=== PATIENT | male | born 1980 ===

== ENCOUNTER 2017-01-19 19:17 | Observation (INO) | payer BC ==
[2017-01-19 20:20] LABS: BASO # 0.1 K/uL (0.0-0.2); EOS # 0.1 K/uL (0.0-0.7); EOS % 1.9 % (0.0-4.0); HEMATOCRIT 41.7 % (35.0-51.0); LYMPH # 2.4 K/uL (1.0-4.3); LYMPH % 36.7 % (20.0-40.0); MEAN CELL VOLUME 89.9 fl (80.0-94.0); MEAN CORPUSCULAR HEMOGLOBIN 31.2 pg (27.0-31.0); MEAN CORPUSCULAR HGB CONC 34.7 g/dL (33.0-37.0); MEAN PLATELET VOLUME 8.2 fl (7.2-11.7); MONO # 0.5 K/uL (0.0-0.8); MONO % 7.3 % (0.0-10.0); NEUT # 3.5 K/uL (1.8-7.0); NEUT % 53.1 % (50.0-75.0); RED CELL DISTRIBUTION WIDTH 13.1 % (11.5-14.5); WHITE BLOOD COUNT 6.6 K/uL (4.8-10.8)
--- NOTE | 2017-01-19 20:39 | ED PDOC ---
HPI: Chest Pain Time Seen by Provider: 01/19/17 19:38 Chief Complaint (Nursing): Chest Pain Chief Complaint (Provider): chest pain History Per: Patient History/Exam Limitations: no limitations Onset/Duration Of Symptoms: Days (x2 weeks) Current Symptoms Are (Timing): Still Present Additional Complaint(s): Regulo Velazquez is a 36 year old male with previous medical history of dyslipidemia, who presents to the emergency department with a complaint of intermittent chest pain described as "pressure and stabbing" ongoing for 2 weeks. Denied nausea, vomiting or sweats. He was seen by PMD earlier today who found him to be bradycardic on EKG, thus, referred patient to ED for evaluation. Patient reported that he is relatively active, playing basketball at least twice a week. PMD: Ayan Leggett MD Past Medical History Reviewed: Historical Data, Nursing Documentation, Vital Signs Vital Signs: Last Vital Signs Temp 97.8 F 01/19/17 19:26 Pulse 45 L 01/19/17 19:26 Resp 16 01/19/17 19:26 BP 122/79 01/19/17 19:26 Pulse Ox 100 01/19/17 20:47 - Medical History Other PMH: dyslipidemia - Family History Family History: States: [place], CAD, Hypertension - Allergies Allergies/Adverse Reactions: Allergies Allergy/AdvReac Type Severity Reaction Status Date / Time No Known Allergies Allergy Verified 01/19/17 19:28 Review of Systems ROS Statement: Except As Marked, All Systems Reviewed And Found Negative Constitutional: Negative for: Sweats Cardiovascular: Positive for: Chest Pain ("pressure/stabbing") Gastrointestinal: Negative for: Nausea, Vomiting Physical Exam - Reviewed Nursing Documentation Reviewed: Yes Vital Signs Reviewed: Yes - Physical Exam Appears: Positive for: Well, Non-toxic, No Acute Distress Head Exam: Positive for: ATRAUMATIC, NORMAL INSPECTION, NORMOCEPHALIC Skin: Positive for: Normal Color, Warm, Dry. Negative for: Rash Eye Exam: Positive for: Normal appearance, EOMI, PERRL. Negative for: Nystagmus ENT: Positive for: Normal ENT Inspection Neck: Positive for: Normal, Painless ROM, Supple. Negative for: Decreased ROM Cardiovascular/Chest: Positive for: Chest Non Tender, Bradycardia. Negative for : Regular Rate, Rhythm, Tachycardia Respiratory: Positive for: Normal Breath Sounds, Accessory Muscle Use. Negative for: Decreased Breath Sounds, Crackles, Rales, Rhonchi, Wheezing, Respiratory Distress Gastrointestinal/Abdominal: Positive for: Normal Exam, Bowel Sounds, Soft. Negative for: Tenderness Back: Positive for: Normal Inspection. Negative for: L CVA Tenderness, R CVA Tenderness Extremity: Positive for: Normal ROM. Negative for: Tenderness, Pedal Edema, Calf Tenderness, Deformity Neurologic/Psych: Positive for: Alert, Oriented - Laboratory Results Result Diagrams: 01/19/17 20:05 01/19/17 20:27 - ECG O2 Sat by Pulse Oximetry: 100 (RA) Pulse Ox Interpretation: Normal Medical Decision Making Medical Decision Making: Initial Impression: Chest pain onset of bradycardia Initial Plan: * EKG * CMP * Drug screen, urine * Troponin I * Urine dipstick * CBC * PTT * PT * CXR * Aspirin 324mg PO Time: 2100 --Labs: negative for significant abnormality. --CXR: negative for active disease. --Discussed case to with Dr. Leggett. Clinical Impression: Chest pain Scribe Attestation: Documented by Delfina Chand, acting as a scribe for Franco Marquez MD. Provider Scribe Attestation: All medical record entries made by the Scribe were at my direction and personally dictated by me. I have reviewed the chart and agree that the record accurately reflects my personal performance of the history, physical exam, medical decision making, and the department course for this patient. I have also personally directed, reviewed, and agree with the discharge instructions and disposition. Disposition - Clinical Impression Clinical Impression: Chest pain Discussed With DrDominick: Ayan Leggett Doctor Will See Patient In The: Office Counseled Patient/Family Regarding: Studies Performed, Diagnosis, Need For Followup - Disposition Disposition: Routine/Home Disposition Time: 21:00 Condition: FAIR
[2017-01-19 20:46] LABS: PARTIAL THROMBOPLASTIN TIME 29.1 Seconds (25.6-37.1)
[2017-01-19 20:47] LABS: ALB/GLOB RATIO 1.5 (1.0-2.1); ALKALINE PHOSPHATASE 49 U/L (38-126); ALT/SGPT 34 U/L (21-72); AST/SGOT 28 U/L (17-59); BILIRUBIN,TOTAL 0.4 mg/dl (0.2-1.3); BLOOD UREA NITROGEN 13 mg/dl (9-20); CALCIUM 9.4 mg/dL (8.4-10.2); CARBON DIOXIDE 28 mmol/L (22-30); CHLORIDE 103 mmol/L (98-107); GFR AFRICAN-AMERICAN > 60; GLUCOSE,RANDOM 87 mg/dL (75-110); POTASSIUM 3.8 MMOL/L (3.6-5.0); SODIUM 142 mmol/l (132-148); TOTAL PROTEIN 7.6 G/DL (6.3-8.2)
--- NOTE | 2017-01-20 07:43 | RAD ---
HISTORY: Admission. Chest pain COMPARISON: No prior. TECHNIQUE: Chest PA and lateral FINDINGS: LUNGS: No active pulmonary disease. PLEURA: No significant pleural effusion identified. No pneumothorax apparent. CARDIOVASCULAR: Normal. OSSEOUS STRUCTURES: No significant abnormalities. VISUALIZED UPPER ABDOMEN: Normal. OTHER FINDINGS: None. IMPRESSION: No active disease. Please note: No preliminary interpretation of this examination rendered by emergency department personnel (Physician and/or PA declined to provide preliminary report of their findings/ observations).
--- NOTE | 2017-01-20 08:48 | CARD ---
APPROVED REPORT Protocol: MOIRA Test Type: Treadmill Stress Test Attending Physician: Dr. Aldridge Referring Physician: Dr. Leggett Technologist: Bianca Betancourt Test Indications: Bradycardia, chest pain Medications: ASA, Simvastatin Medical History: Cholesterol Target HR: 183 bpm Resting ECG: normal Resting Heart Rate: 50 bpm Resting Blood Pressure: 118/74mmHg submaximum (85%): 156 bpm TEST SUMMARY [id number]. [id number]. PRETESTHYPERV.[id number]. PRETESTWARM-[id number]/74.2. EXERCISESTAGE 103:[id number]/70.1. EXERCISESTAGE 203:[id number]/70.2. EXERCISESTAGE 303:[id number]/74.1. EXERCISESTAGE 401:[id number]/74.8. [id number]:[id number]/70.0. POST EXERCISE Reason for Termination: Fatigue Target HR: NoMax HR: 150 bpm83% of Maximum Predicted HR: 183 bpm Exercise duration: 4 Stage10:01 min:secExercise capacity: 11.7METs Max Blood Pressure: 170/74mmHg Blood Pressure response to exercise: normal resting BP - appropriate response Heart Rate response to exercise: appropriate Chest Pain: NononeAngina index: 0 Arrhythmia: Nonone ST Change: NononeDeviation: 0 mm INTERPRETATION Stress EKG Conclusion: This 36-year-old man was hospitalized for a complaint of palpitations mostly at rest underwent this study to rule out evidence of effort induced myocardial ischemia. His resting electric cardiogram showed sinus rhythm at 40 bpm but otherwise normal pattern. His resting blood pressure is 118/74 mmHg. Cardiac auscultation was unremarkable. On Moira protocol he was able to finish 1 minute of stage IV effort which corresponded to 11.7 METs. There was neither chest pain or ischemic electro-Cardiologic abnormality. The patient did not report any chest pain. The peak heart rate achieved was 150 bpm which corresponded to 85% of his predicted max. The blood pressure response was appropriate reaching 170/74 mmHg. Upon termination of exercise, his heart rate and blood pressure recovery were normal. The patient left the stress lab symptom free and hemodynamically stable. IMPRESSION: The patient had an excellent effort tolerance. His blood pressure response to exercise was appropriate. At 85% of his predicted maximum heart rate, no evidence of myocardial ischemia was detected.
[2017-01-20 11:01] LABS: THYROID STIMULATING HORMONE 3.2 mIU/ML (0.46-4.68)
[2017-01-20 12:06] VITALS: BP 115/65; PULSE 50; RESP 20; TEMP 98.5; O2SAT 98
--- NOTE | 2017-01-20 12:52 | CP.PCM.CON ---
History of Present Illness - History of Present Illness History of Present Illness: I was asked to see patient by Dr Leggett. Patient is a 36 year old male with PMH hypercholesterolemia, who presents with chest pain. He descirbes intermittent substernal chest pressure and burning. He presented to his primary medical doctor and was found to have a an abnormal EKG. He is s/p stress test which I have reviewed. Review of Systems - Constitutional Constitutional: absent: As Per HPI, Anorexia, Chills, Daytime Sleepiness, Excessive Sweating, Fatigue, Fever, Frequent Falls, Headache, Increased Appetite , Lethargy, Malaise, Night Sweats, Snoring, Sleep Apnea, Weight Gain, Weight Loss, Weakness, Other - EENT Eyes: absent: As Per HPI, Blind Spots, Blurred Vision, Change in Vision, Decreased Night Vision, Diplopia, Discharge, Dry Eye, Exophthalmos, Floaters, Irritation, Itchy Eyes, Loss of Peripheral Vision, Pain, Photophobia, Requires Corrective Lenses, Sees Flashes, Spots in Vision, Tunnel Vision, Other Visual Disturbances, Loss of Vision, Other Ears: absent: As Per HPI, Decreased Hearing, Ear Discharge, Ear Pain, Tinnitus, Abnormal Hearing, Disequilibrium, Dizziness, Other Nose/Mouth/Throat: absent: As Per HPI, Epistaxis, Nasal Congestion, Nasal Discharge, Nasal Obstruction, Nasal Trauma, Nose Pain, Post Nasal Drip, Sinus Pain, Sinus Pressure, Bleeding Gums, Change in Voice, Dental Pain, Dry Mouth, Dysphagia, Halitosis, Hoarsness, Lip Swelling, Mouth Lesions, Mouth Pain, Odynophagia, Sore Throat, Throat Swelling, Tongue Swelling, Facial Pain, Neck Pain, Neck Mass, Other - Cardiovascular Cardiovascular: Chest Pain, Dyspnea - Respiratory Respiratory: absent: As Per HPI, Cough, Dyspnea, Hemoptysis, Dyspnea on Exertion , Wheezing, Snoring, Stridor, Pain on Inspiration, Chest Congestion, Excessive Mucous Production, Change in Mucous Color, Pain with Coughing, Other - Gastrointestinal Gastrointestinal: absent: As Per HPI, Abdominal Pain, Belching, Bloating, Change in Bowel Habits, Change in Stool Character, Coffee Ground Emesis, Constipation, Cramping, Diarrhea, Dyspepsia, Dysphagia, Early Satiety, Excessive Flatus, Fecal Incontinence, Heartburn, Hematemesis, Hematochezia, Loose Stools, Melena, Nausea, Odynophagia, Temesmus, Vomiting, Other - Musculoskeletal Musculoskeletal: absent: As Per HPI, Abnormal Gait, Arthralgias, Atrophy, Back Pain, Deformity, Joint Swelling, Limited Range of Motion, Loss of Height, Muscle Cramps, Muscle Weakness, Myalgias, Neck Pain, Numbness, Radiating Pain into Limb, Stiffness, Tingling, Other - Integumentary Integumentary: absent: As Per HPI, Acne, Alopecia, Bleeding Lesions, Change in Hair, Change in Nails, Change in Pigmentation, Changing Lesions, Dry Skin, Erythema, Furuncle, Hirsutism, Lesions, New Lesions, Non-Healing Lesions, Photosensitivity, Pruritus, Rash, Skin Pain, Skin Ulcer, Sores, Striae, Swelling , Unusual Bruising, Wounds, Jaundice, Other - Neurological Neurological: absent: As Per HPI, Abnormal Gait, Abnormal Hearing, Abnormal Movements, Abnormal Speech, Behavioral Changes, Burning Sensations, Confusion, Convulsions, Disequilibrium, Dizziness, Numbness, Focal Weakness, Frequent Falls , Headaches, Lack of Coordination, Loss of Vision, Memory Loss, Paresthesias, Radicular Pain, Restless Legs, Sensory Deficit, Syncope, Tingling, Tremor, Vertigo, Weakness, Other Visual Disturbances, Other - Psychiatric Psychiatric: absent: As Per HPI, Abnormal Sleep Pattern, Anhedonia, Anxiety, Auditory Hallucinations, Behavioral Changes, Change in Appetite, Change in Libido, Confusion, Depression, Difficulty Concentrating, Hallucinations, Homicidal Ideation, Hopelessness, Irritability, Memory Loss, Mood Swings, Panic Attacks, Paranoia, Suicidal Ideation, Visual Hallucinations, Tactile Hallucinations, Other - Endocrine Endocrine: absent: As Per HPI, Change in Body Appearance, Change in Libido, Cold Intolorance, Deepening of Voice, Excessive Sweating, Fatigue, Flushing, Heat Intolorance, Increase in Ring/Shoe/Hat Size, Palpitations, Polydipsia, Polyphagia, Polyuria, Other - Hematologic/Lymphatic Hematologic: absent: As Per HPI, Easy Bleeding, Easy Bruising, Lymphadenopathy, Other Past Patient History - Past Medical History & Family History Past Medical History?: Yes - Past Social History Smoking Status: Never Smoked - CARDIAC Hx Cardiac Disorders: Yes Hx Hypercholesterolemia: Yes - PULMONARY Hx Respiratory Disorders: No - NEUROLOGICAL Hx Neurological Disorder: No - HEENT Hx HEENT Problems: No - RENAL Hx Chronic Kidney Disease: No - ENDOCRINE/METABOLIC Hx Endocrine Disorders: No - HEMATOLOGICAL/ONCOLOGICAL Hx Blood Disorders: No - INTEGUMENTARY Hx Dermatological Problems: No - MUSCULOSKELETAL/RHEUMATOLOGICAL Hx Musculoskeletal Disorders: No Hx Back Pain: Yes Hx Falls: No Hx Herniated Disk: Yes - GASTROINTESTINAL Hx Gastrointestinal Disorders: No - GENITOURINARY/GYNECOLOGICAL Hx Genitourinary Disorders: No - PSYCHIATRIC Hx Psychophysiologic Disorder: No Hx Substance Use: No - SURGICAL HISTORY Hx Surgeries: No - ANESTHESIA Hx Anesthesia: No Hx Anesthesia Reactions: No Hx Malignant Hyperthermia: No Has any member of the family had a problem w/ anesthesia?: No Meds Home Medications: Home Medication List Medication Instructions Recorded Confirmed Type Aspirin [Ecotrin] 81 mg PO DAILY #30 tabec 01/20/17 Rx Atorvastatin [Lipitor] 40 mg PO DAILY #30 tab 01/20/17 Rx Allergies/Adverse Reactions: Allergies Allergy/AdvReac Type Severity Reaction Status Date / Time No Known Allergies Allergy Verified 01/19/17 19:28 - Medications Medications: Current Medications Aspirin (Ecotrin) 81 mg PO DAILY [facility] Last Admin: 01/20/17 10:58 Dose: 81 mg Atorvastatin Calcium (Lipitor) 40 mg PO DAILY [facility] Last Admin: 01/20/17 10:58 Dose: 40 mg Physical Exam - Constitutional Appears: Non-toxic - Head Exam Head Exam: NORMAL INSPECTION - Eye Exam Eye Exam: Normal appearance - ENT Exam ENT Exam: Mucous Membranes Moist - Neck Exam Neck exam: Positive for: Full Rom - Respiratory Exam Respiratory Exam: Decreased Breath Sounds - Cardiovascular Exam Cardiovascular Exam: REGULAR RHYTHM - GI/Abdominal Exam GI & Abdominal Exam: Normal Bowel Sounds - Rectal Exam Rectal Exam: Deferred - Extremities Exam Extremities exam: Negative for: pedal edema - Back Exam Back exam: NORMAL INSPECTION - Neurological Exam Neurological exam: Alert, Oriented x3 - Psychiatric Exam Psychiatric exam: Normal Affect - Skin Skin Exam: Normal Color Results - Vital Signs Recent Vital Signs: Last Vital Signs Temp 98.5 F 01/20/17 12:06 Pulse 50 L 01/20/17 12:06 Resp 20 01/20/17 12:06 BP 115/65 01/20/17 12:06 Pulse Ox 98 01/20/17 12:06 - Labs Result Diagrams: 01/19/17 20:05 01/19/17 20:27 Labs: Laboratory Results - last 24 hr 01/19/17 01/19/17 01/19/17 20:05 20:27 20:35 WBC 6.6 RBC 4.64 Hgb 14.5 Hct 41.7 MCV 89.9 MCH 31.2 H MCHC 34.7 RDW 13.1 Plt Count 239 MPV 8.2 Neut % (Auto) 53.1 Lymph % (Auto) 36.7 [place] % (Auto) 7.3 Eos % (Auto) 1.9 Baso % (Auto) 1.0 Neut # 3.5 Lymph # 2.4 [place] # 0.5 Eos # 0.1 Baso # 0.1 PT 11.1 INR 1.0 APTT 29.1 Sodium 142 Potassium 3.8 Chloride 103 Carbon Dioxide 28 Anion Gap 15 BUN 13 Creatinine 0.9 Est GFR ( Amer) > 60 Est GFR (Non-Af Amer) > 60 Random Glucose 87 Calcium 9.4 Total Bilirubin 0.4 AST 28 ALT 34 Alkaline Phosphatase 49 Troponin I 0.0130 Total Protein 7.6 Albumin 4.6 Globulin 3.0 Albumin/Globulin Ratio 1.5 Total T3 TSH 3rd Generation 01/20/17 01/20/17 04:10 10:19 WBC RBC Hgb Hct MCV MCH MCHC RDW Plt Count MPV Neut % (Auto) Lymph % (Auto) [place] % (Auto) Eos % (Auto) Baso % (Auto) Neut # Lymph # [place] # Eos # Baso # PT INR APTT Sodium Potassium Chloride Carbon Dioxide Anion Gap BUN Creatinine Est GFR ( Amer) Est GFR (Non-Af Amer) Random Glucose Calcium Total Bilirubin AST ALT Alkaline Phosphatase Troponin I < 0.0120 Total Protein Albumin Globulin Albumin/Globulin Ratio Total T3 1.14 L TSH 3rd Generation 3.20 - EKG Data EKG Interpreted by: Myself EKG shows normal: Sinus rhythm Assessment & Plan (1) Hypercholesteremia Assessment and Plan: recommend therapy Status: Acute (2) Chest pain Assessment and Plan: normal stress test. I discussed risk factors with the patient. Status: Acute
--- NOTE | 2017-01-20 12:52 | CP.PCM.CON ---
History of Present Illness - History of Present Illness History of Present Illness: patient seen/examined stress test is normal patient is stable for discharge. risk factor modification discussed Past Patient History - Past Medical History & Family History Past Medical History?: Yes - Past Social History Smoking Status: Never Smoked - CARDIAC Hx Cardiac Disorders: Yes Hx Hypercholesterolemia: Yes - PULMONARY Hx Respiratory Disorders: No - NEUROLOGICAL Hx Neurological Disorder: No - HEENT Hx HEENT Problems: No - RENAL Hx Chronic Kidney Disease: No - ENDOCRINE/METABOLIC Hx Endocrine Disorders: No - HEMATOLOGICAL/ONCOLOGICAL Hx Blood Disorders: No - INTEGUMENTARY Hx Dermatological Problems: No - MUSCULOSKELETAL/RHEUMATOLOGICAL Hx Musculoskeletal Disorders: No Hx Back Pain: Yes Hx Falls: No Hx Herniated Disk: Yes - GASTROINTESTINAL Hx Gastrointestinal Disorders: No - GENITOURINARY/GYNECOLOGICAL Hx Genitourinary Disorders: No - PSYCHIATRIC Hx Psychophysiologic Disorder: No Hx Substance Use: No - SURGICAL HISTORY Hx Surgeries: No - ANESTHESIA Hx Anesthesia: No Hx Anesthesia Reactions: No Hx Malignant Hyperthermia: No Has any member of the family had a problem w/ anesthesia?: No Meds Allergies/Adverse Reactions: Allergies Allergy/AdvReac Type Severity Reaction Status Date / Time No Known Allergies Allergy Verified 01/19/17 19:28 - Medications Medications: Current Medications Aspirin (Ecotrin) 81 mg PO DAILY [facility] Last Admin: 01/20/17 10:58 Dose: 81 mg Atorvastatin Calcium (Lipitor) 40 mg PO DAILY [facility] Last Admin: 01/20/17 10:58 Dose: 40 mg Results - Vital Signs Recent Vital Signs: Last Vital Signs Temp 98.5 F 01/20/17 12:06 Pulse 50 L 01/20/17 12:06 Resp 20 01/20/17 12:06 BP 115/65 01/20/17 12:06 Pulse Ox 98 01/20/17 12:06 - Labs Result Diagrams: 01/19/17 20:05 01/19/17 20:27 Labs: Laboratory Results - last 24 hr 01/19/17 01/19/17 01/19/17 20:05 20:27 20:35 WBC 6.6 RBC 4.64 Hgb 14.5 Hct 41.7 MCV 89.9 MCH 31.2 H MCHC 34.7 RDW 13.1 Plt Count 239 MPV 8.2 Neut % (Auto) 53.1 Lymph % (Auto) 36.7 [place] % (Auto) 7.3 Eos % (Auto) 1.9 Baso % (Auto) 1.0 Neut # 3.5 Lymph # 2.4 [place] # 0.5 Eos # 0.1 Baso # 0.1 PT 11.1 INR 1.0 APTT 29.1 Sodium 142 Potassium 3.8 Chloride 103 Carbon Dioxide 28 Anion Gap 15 BUN 13 Creatinine 0.9 Est GFR ( Amer) > 60 Est GFR (Non-Af Amer) > 60 Random Glucose 87 Calcium 9.4 Total Bilirubin 0.4 AST 28 ALT 34 Alkaline Phosphatase 49 Troponin I 0.0130 Total Protein 7.6 Albumin 4.6 Globulin 3.0 Albumin/Globulin Ratio 1.5 Total T3 TSH 3rd Generation 01/20/17 01/20/17 04:10 10:19 WBC RBC Hgb Hct MCV MCH MCHC RDW Plt Count MPV Neut % (Auto) Lymph % (Auto) [place] % (Auto) Eos % (Auto) Baso % (Auto) Neut # Lymph # [place] # Eos # Baso # PT INR APTT Sodium Potassium Chloride Carbon Dioxide Anion Gap BUN Creatinine Est GFR ( Amer) Est GFR (Non-Af Amer) Random Glucose Calcium Total Bilirubin AST ALT Alkaline Phosphatase Troponin I < 0.0120 Total Protein Albumin Globulin Albumin/Globulin Ratio Total T3 1.14 L TSH 3rd Generation 3.20
--- NOTE | 2017-01-20 15:27 | CARD ---
APPROVED REPORT EKG Measurement Heart [id number] [place] [id number] [id number] <Conclusion> Marked sinus bradycardia with sinus arrhythmia Abnormal ECG
--- NOTE | 2017-01-20 15:31 | CARD ---
APPROVED REPORT EKG Measurement Heart [id number] 176P69 [id number] <Conclusion> Marked sinus bradycardia with sinus arrhythmia Abnormal ECG
--- NOTE | 2017-01-21 08:48 | CARD ---
APPROVED REPORT EKG Measurement Heart [id number] [place] 166P64 [id number] <Conclusion> Sinus bradycardia with sinus arrhythmia Otherwise normal ECG
== END 2017-01-20 14:15 | disposition home or self-care (01) ==
LOC: H.ER 19:17 → H.ERHOLD 20:37 → H.TEL 01-20 00:15
PROVIDERS: ADMIT Family Medicine; ATTEND Family Medicine
DX: R07.89 Other chest pain (principal); E78.5 Hyperlipidemia, unspecified; E78.00 Pure hypercholesterolemia, unspecified; R94.31 Abnormal electrocardiogram [ECG] [EKG]
CPT/HCPCS: 36415; 71020; 80053; 84443; 84480; 84484; 85025; 85610; 85730; 93005; 93017; 99285; G0378; G0480